=== PATIENT | female | born 1985 | race Two or more races ===

== ENCOUNTER 2024-10-12 09:39 | Outpatient (CLI) | payer OTHER | END 2024-10-12 09:40 | disposition home or self-care (01) | LOC: SONOGRAMA 09:39 | PROVIDERS: ATTEND Obstetrics & Gynecology | DX: R87.810 Cervical high risk human papillomavirus (HPV) DNA test positive (principal); N87.0 Mild cervical dysplasia; N92.0 Excessive and frequent menstruation with regular cycle ==

== ENCOUNTER 2025-05-24 08:11 | Outpatient (CLI) | payer OTHER | END 2025-05-24 08:17 | disposition home or self-care (01) | LOC: SONOGRAMA 08:11 | PROVIDERS: ATTEND Obstetrics & Gynecology | DX: R87.810 Cervical high risk human papillomavirus (HPV) DNA test positive (principal); N87.0 Mild cervical dysplasia; R87.610 Atypical squamous cells of undetermined significance on cytologic smear of cervix (ASC-US); E28.310 Symptomatic premature menopause; N92.0 Excessive and frequent menstruation with regular cycle; D25.1 Intramural leiomyoma of uterus; N76.4 Abscess of vulva ==